=== PATIENT | male | born 1990 | race Caucasian/White ===

== ENCOUNTER 2018-09-05 04:12 | Emergency (ER) | payer OTHER ==
[2018-09-05] MEDS ORDERED: OXYMETAZOLINE NASAL SPRAY NAS STA (04:39)
[2018-09-05 04:47] LABS: MUDS CUTOFF CONCENTRATIONS CUTOFF CONC BELOW:
[2018-09-05 04:56] LABS: BILIRUBIN,URINE NEGATIVE (NEGATIVE); GLUCOSE, URINE (UA) NEGATIVE (NEGATIVE); KETONES,URINE (UA) NEGATIVE (NEGATIVE); LEUKOCYTE ESTERASE, URINE NEGATIVE (NEGATIVE); NITRITE,URINE NEGATIVE (NEGATIVE); OCCULT BLOOD,URINE TRACE-LYSE (NEGATIVE); PROTEIN,URINE TRACE mg/dL (NEGATIVE); UROBILINOGEN,URINE 0.2 (NORMAL) E.U./dL (NORMAL)
[2018-09-05 04:57] LABS: CLARITY,URINE CLEAR (CLEAR)
[2018-09-05 05:13] LABS: BASOPHILS # (AUTO) 0.1 10^3/uL (0.0-0.1); BASOPHILS % (AUTO) 1.1 %; EOSINOPHILS % (AUTO) 0.5 %; LYMPHOCYTES # (AUTO) 1.5 10^3/uL (1.5-3.5); LYMPHOCYTES % (AUTO) 25.2 %; MEAN CORPUSCULAR HEMOGLOBIN 32.1 pg (27.0-31.0); MEAN CORPUSCULAR HGB CONC 34.8 g/dL (32.0-36.0); MEAN CORPUSCULAR VOLUME 92.3 fL (80.0-94.0); MEAN PLATELET VOLUME 7.7 fL (7.4-11.4); MONOCYTES # (AUTO) 0.2 10^3/uL (0.0-1.0); MONOCYTES % (AUTO) 3.8 %; NEUTROPHILS # (AUTO) 4.2 10^3/uL (1.5-6.6); NEUTROPHILS % (AUTO) 69.4 %; PLT - PLATELET COUNT 245 10^3/uL (130-450); RED BLOOD COUNT 4.66 10^6/uL (4.70-6.10); RED CELL DISTRIBUTION WIDTH 13.2 % (12.0-15.0)
[2018-09-05 05:19] LABS: ALBUMIN 4.9 g/dL (3.2-5.5); ALBUMIN/GLOBULIN RATIO 1.4 (1.0-2.2); BILIRUBIN,TOTAL 0.4 mg/dL (0.2-1.0); CALCIUM 8.6 mg/dL (8.5-10.3); CREATININE 0.9 mg/dL (0.6-1.2); TOTAL PROTEIN 8.3 g/dL (6.7-8.2)
[2018-09-05 05:24] LABS: AMPHETAMINE SCREEN,URINE NEGATIVE (NEGATIVE); BENZODIAZEPINES SCREEN, URINE NEGATIVE (NEGATIVE); COCAINE SCREEN URINE NEGATIVE (NEGATIVE); METHADONE SCREEN, URINE NEGATIVE (NEGATIVE); METHAMPHETAMINES SCREEN, URINE NEGATIVE (NEGATIVE); OPIATE SCREEN, URINE NEGATIVE (NEGATIVE); OXYCODONE SCREEN, URINE NEGATIVE (NEGATIVE); PROPOXYPHENE SCREEN, URINE NEGATIVE (NEGATIVE); TRICYCLIC ANTIDEPRESSANT,URINE NEGATIVE (NEGATIVE)
--- NOTE | 2018-09-05 05:42 | ED Physician Documentation ---
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 He is intoxicated and he looks a complete bloody mess. The patient thought this was humerus took a picture of himself and then posted on social media stating he just tried to kill himself. The police were activated and the patient is brought to the hospital for evaluation. The patient himself states that he has no intentions of suicide but, he has had feelings of self-harm and has not acted on them. He states that what happened to him tonight was not an act of self-harm and that he had simply done what he is done previously a number of times which is to adjust his nasal septum it does bleed once in a while and tonight blood profusely. He indicates his depression mostly involves trouble sleeping. He has not had suicide attempt previously and he has not been hospitalized or treated for depression. Review of Systems Constitutional: denies: Fever, Chills, Myalgias Eyes: denies: Decreased vision Ears: denies: Ear pain Nose: reports: Epistaxis. denies: Congestion Throat: denies: Sore throat Cardiac: denies: Chest pain / pressure, Palpitations Respiratory: denies: Dyspnea, Cough GI: denies: Abdominal Pain, Nausea, Vomiting : denies: Dysuria, Frequency Skin: denies: Rash Musculoskeletal: denies: Neck pain, Back pain, Extremity pain Neurologic: denies: Generalized weakness, Focal weakness, Numbness, Difficulty speaking PD PAST MEDICAL HISTORY - Past Medical History Past Medical History: Yes Psych: Depression - Past Surgical History Past Surgical History: No - Allergies Allergies/Adverse Reactions: Allergies Allergy/AdvReac Type Severity Reaction Status Date / Time No Known Drug Allergies Allergy Verified 09/05/18 04:27 - Social History Does the pt smoke?: No Smoking Status: Never smoker Does the pt drink ETOH?: Yes Does the pt have substance abuse?: No - Immunizations Immunizations are current?: Yes PD ED PE NORMAL - Vitals Vital signs reviewed: Yes (hypertensive ) - General General: Alert and oriented X 3, No acute distress, Well developed/nourished - HEENT HEENT: Atraumatic, PERRL, EOMI - Neck Neck: Supple, no meningeal sign, No bony TTP - Cardiac Cardiac: RRR, No murmur - Respiratory Respiratory: No respiratory distress, Clear bilaterally - Abdomen Abdomen: Soft, Non tender - Back Back: No CVA TTP, No spinal TTP - Derm Derm: Normal color, Warm and dry, No rash - Extremities Extremities: No deformity, No edema - Neuro Neuro: Alert and oriented X 3, 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, No motor deficit, No sensory deficit, Normal speech Eye Opening: Spontaneous Motor: Obeys Commands Verbal: Oriented GCS Score: 15 - Psych Psych: Normal mood, Normal affect Results - Vitals Vitals: Vital Signs - 24 hr 09/05/18 04:21 Temperature 36.4 C L Heart Rate 99 Respiratory 16 Rate Blood Pressure 159/105 H O2 Saturation 98 Oxygen O2 Source Room air - Labs Labs: Laboratory Tests 09/05/18 09/05/18 09/05/18 04:29 05:00 05:00 WBC 6.0 RBC 4.66 L Hgb 15.0 Hct 43.0 MCV 92.3 MCH 32.1 H MCHC 34.8 RDW 13.2 Plt Count 245 MPV 7.7 Neut # (Auto) 4.2 Lymph # (Auto) 1.5 Potter # (Auto) 0.2 Eos # (Auto) 0.0 Baso # (Auto) 0.1 Absolute Nucleated RBC 0.01 Nucleated RBC % 0.1 Sodium 141 Potassium 4.3 Chloride 104 Carbon Dioxide 26 Anion Gap 11.0 BUN 11 Creatinine 0.9 Estimated GFR (MDRD) 102 Glucose 112 H Calcium 8.6 Total Bilirubin 0.4 AST 34 ALT 26 Alkaline Phosphatase 61 Total Protein 8.3 H Albumin 4.9 Globulin 3.4 Albumin/Globulin Ratio 1.4 Lipase 39 Urine Color YELLOW Urine Clarity CLEAR Urine pH 6.0 Ur Specific [place] >=1.030 H Urine Protein TRACE Urine Glucose (UA) NEGATIVE Urine Ketones NEGATIVE Urine Occult Blood TRACE-LYSE Urine Nitrite NEGATIVE Urine Bilirubin NEGATIVE Urine Urobilinogen 0.2 (NORMAL) Ur Leukocyte Esterase NEGATIVE Ur Microscopic Review NOT INDICATED Urine Culture Comments NOT INDICATED Urine Opiates Screen NEGATIVE Ur Oxycodone Screen NEGATIVE Urine Methadone Screen NEGATIVE Ur Propoxyphene Screen NEGATIVE Ur Barbiturates Screen NEGATIVE Ur Tricyclics Screen NEGATIVE Ur Phencyclidine Scrn NEGATIVE Ur Amphetamine Screen NEGATIVE U Methamphetamines Scrn NEGATIVE U Benzodiazepines Scrn NEGATIVE Urine Cocaine Screen NEGATIVE U Cannabinoids Screen NEGATIVE Ethyl Alcohol 278.3 PD MEDICAL DECISION MAKING - ED course Complexity details: reviewed results, re-evaluated patient, considered differential, d/w patient ED course: 28-year-old male who posted a picture of his bloody shirt on the social medially after a nosebleed made some comments of concern and is brought to the hospital for evaluation here in the emergency department the patient denies any suicidal ideation but does confirm long-standing depression and thoughts of self-harm. The patient is voluntary, intoxicated and he is medically cleared. He will talk with social work this morning. Departure - Departure Clinical Impression: Depression Qualifiers: Depression Type: unspecified Qualified Code(s): F32.9 - Major depressive disorder, single episode, unspecified Instructions: ED Depression Follow-Up: JULIO COLLAZO [Primary Care Provider] -
--- NOTE | 2018-09-05 11:06 | ED Physician Documentation ---
ED Addendum - Addendum Addendum: Patient was evaluated by social work, he contracts for safety at this time. His command will have him stay with someone and be monitored until tomorrow. Tomorrow they will look at getting him into substance abuse treatment for his alcohol and mental health treatment for his ongoing depression. Patient is able to contract for safety at this time. Patient counseled regarding signs and symptoms for which I believe and urgent re-evaluation would be necessary. Patient with good understanding of and agreement to plan and is comfortable going home at this time This document was made in part using voice recognition software. While efforts are made to proofread this document, sound alike and grammatical errors may occur. Departure - Departure Disposition: Home, Self Care Clinical Impression: Depression Qualifiers: Depression Type: unspecified Qualified Code(s): F32.9 - Major depressive disorder, single episode, unspecified Alcohol intoxication Qualifiers: Complication of substance-induced condition: uncomplicated Qualified Code(s): F10.920 - Alcohol use, unspecified with intoxication, uncomplicated Condition: Good Instructions: ED Depression, ED Alcohol Intoxication Follow-Up: JULIO COLLAZO [Primary Care Provider] - Comments: You are to stay with someone as directed by your command today. You need to have mental health counseling and substance abuse treatment. Crisis Line and is available to talk to someone [email or web address] is also available to chat with someone online if you prefer. There are also many resources on this website and apps for your phone to help with your mental health You can also text the word START to [phone] to chat with someome via text.
[2018-09-05 11:31] VITALS: BP 117/76
== END 2018-09-05 11:29 | disposition home or self-care (01) ==
LOC: ED 04:12
DX: F32.9 Major depressive disorder, single episode, unspecified (principal); F10.920 Alcohol use, unspecified with intoxication, uncomplicated
CPT/HCPCS: 36415; 80053; 80306; 80320; 81003; 83690; 85025; 99283; A9270; 81001; 87086